=== PATIENT | male | born 1960 | race Caucasian/White ===

== ENCOUNTER → 2018-01-27 | Outpatient (CLI) | payer OTHER ==
--- NOTE | ~2018-01-27 | EEG ---
[address] [address] EEG STUDY REPORT Name: BRIJESH BOLDEN Room: [facility]#: [id number] Admission: 01/27/18 Attend Phys: Taz Liu MD Discharge: Date of : 62 Report #: [id number] THIS REPORT FOR: //name// CC: Taz Puente DATE OF SERVICE: 01/27/2018 This patient is being evaluated for the possibility of seizure. EEG was done by placing the electrode by standard 10-20 system of electrode placement. Both referential and sequential montages were used for recording. Background activity in this patient's EEG is about 9-10 Hz and 30-40 microvolt. This was a symmetrical activity. The patient became drowsy that is associated with bilateral slowing and vertex sharp waves. Photic stimulation is unremarkable. Throughout the record, no active epileptiform activity was noticed. IMPRESSION: This patient's EEG does not demonstrate any clear-cut epileptiform activity. It might be mentioned that EEG can be normal in a patient with seizure disorder. Further workup and clinical correlation is recommended if the patient's clinical doubt continue to exist about seizure disorder. Thank you very much for this referral. By: [id number] Hans Liu MD /nt
[2018-01-27 09:52] LABS: CALCIUM 9.1 mg/dL (8.5-10.1); POTASSIUM 4.1 mmol/L (3.5-5.1)
== END ==
LOC: M.CRD 01-07 11:10 → M.LAB 09:24 → M.MRI 11:30
PROVIDERS: Psychiatry & Neurology Neuromuscular Medicine
DX: G25.0 Essential tremor (principal); R56.9 Unspecified convulsions